=== PATIENT | male | born 1945 | race Caucasian/White ===

== ENCOUNTER 2021-05-22 21:00 | Observation (INO) ==
[2021-05-22] MEDS ORDERED: Ondansetron 4 MG/2 ML VIAL IVP PRN (22:48)
[2021-05-22] MEDS ORDERED: Acetaminophen 325 MG TABLET PO PRN (22:48)
[2021-05-22] MEDS ORDERED: Naloxone 0.4 MG/ML INJ IVP PRN (22:48)
[2021-05-22] MEDS ORDERED: Melatonin 3 MG TABLET PO PRN (22:48)
[2021-05-23] MEDS ORDERED: Dextrose Gel 15 GM/37.5 ML TUBE PO PRN ×2 (01:48)
[2021-05-23] MEDS ORDERED: *HR* Dextrose 50 % in Water (Vial) 50 ML VIAL IVP PRN (01:48)
[2021-05-23] MEDS ORDERED: D5% in Water 1,000 ML IVC PRN (01:48)
[2021-05-23 02:09] VITALS: PULSE 61
[2021-05-23 04:49] LABS: Basophils % 0.5 %; Eosinophils % 0.7 %; Hematocrit 36.7 % (37.5-50.1); Hemoglobin 12.6 g/dL (12.9-16.9); Immature Granulocytes % 0.3 % (0-4); Lymphocytes # 1.4 K/mcL (0.6-4.6); Mean Corpuscular HGB Conc 34.3 g/dL (31.6-35.5); Mean Corpuscular Hemoglobin 29.5 pg (28.0-33.3); Mean Corpuscular Volume 85.9 fL (83.0-100.0); Mean Platelet Volume 10.3 fL (9.4-12.4); Monocytes # 0.6 K/mcL (0.0-1.3); Monocytes % 9.1 %; Platelet Count 259 K/mcL (140-400); Red Blood Count 4.27 M/mcL (4.19-5.50); Red Cell Distribution Width 12.3 % (11.5-14.5); Segmented Neutrophils % 66.4 %
[2021-05-23 05:06] LABS: Alanine Aminotransferase 4 Units/L (7-52); Albumin/Globulin Ratio 1.8 (1.1-2.2); Alkaline Phosphatase 50 Units/L (34-104); Aspartate Amino Transferase 11 Units/L (13-39); BUN/Creatinine Ratio 12 (6-26); Bilirubin,Total 0.6 mg/dL (0.3-1.0); Blood Urea Nitrogen 12 mg/dL (8-23); Calcium 9.7 mg/dL (8.6-10.3); Carbon Dioxide 27 mEq/L (23-29); Chloride 104 mEq/L (98-107); Globulin 2.2 g/dL (2.4-3.5); Glucose 118 mg/dL (70-105); Osmolality,Calculated 287 (280-300); Phosphorous 2.9 mg/dL (2.7-4.5); Potassium 3.3 mEq/L (3.5-5.1); Sodium 138 mEq/L (136-145); Total Protein 6.2 g/dL (6.4-8.9); Troponin I < 0.03 ng/mL (< 0.04); eGFR For African Americans > 60 (> 60); eGFR For Non-African Americans > 60 (> 60)
[2021-05-23] MEDS ORDERED: *HR* Heparin 5,000 UNIT/ML VIAL SQ SCH (06:00)
[2021-05-23] MEDS ORDERED: Insulin LISPRO 300 UNITS/3 ML VIAL SUBQ SCH (06:00)
[2021-05-23 07:06] VITALS: TEMP 98.2; O2SAT 98
[2021-05-23] MEDS ORDERED: amLODIPine 5 MG TABLET PO SCH (09:00)
[2021-05-23] MEDS ORDERED: Aspirin Enteric Coated 81 MG Tablet PO SCH (09:00)
[2021-05-23] MEDS ORDERED: lisinopriL 20 MG TABLET PO SCH (09:00)
[2021-05-23 09:35] VITALS: BP 161/89
[2021-05-23] MEDS ORDERED: OXcarbazepine 150 MG TABLET PO SCH (10:00)
[2021-05-23] MEDS ORDERED: Metoprolol XL (24 HR) Succ 50 MG TAB.ER.24H PO SCH (10:00)
[2021-05-23] MEDS ORDERED: Gabapentin 400 MG CAPSULE PO SCH (21:00)
[2021-05-24] MEDS ORDERED: *HR* Metformin 500 MG TABLET PO SCH (08:00)
[2021-05-24] MEDS ORDERED: hydroCHLOROthiazide 25 MG TABLET PO SCH (09:00)
== END 2021-05-23 11:15 | disposition home health service (06) ==
LOC: CDU
PROVIDERS: ADMIT Family Medicine; ATTEND Family Medicine